=== PATIENT | male | born 1975 | race Caucasian/White ===

== ENCOUNTER 2016-10-27 19:03 | Emergency (ER) | payer MEDICAID ==
[2016-10-27] MEDS ORDERED: Sulfamethoxazole/Trimethoprim 800-160 MG Tab ONE (19:30)
[2016-10-27 19:55] VITALS: BP 105/88
--- NOTE | 2016-10-27 20:08 | EDM.PDOC ---
ED HPI GENERAL MEDICAL PROBLEM - General Chief Complaint: General Stated Complaint: SOB Time Seen by Provider: 10/27/16 19:30 Source of Information: Reports: Patient History Limitations: Reports: No Limitations - History of Present Illness INITIAL COMMENTS - FREE TEXT/NARRATIVE: According to patient he has asthma for a long time and is on symbicort and Proventil inhalers. 3 days ago he developed some fever which he claims was 102F and has been having coughing episodes, with no sputum. Cough is intermittent and dry. Since then his wheezing has got worse. He has been using proventil inhaler more frequently and now has run out of his meds. No chest tightness. he c/o pain in his right lower chest from coughing. No nausea or vomiting. No SOB. No other complaints. Duration: Day(s): (4) Treatments GAS MANAGER: Reports: Acetaminophen, Other (see below) Other Treatments GAS MANAGER: rescue inhaler - Related Data Allergies Allergy/AdvReac Type Severity Reaction Status Date / Time No Known Allergies Allergy Verified 07/04/13 13:52 Home Meds: Home Meds Citalopram [Citalopram HBr] 07/04/13 [History] Ipratropium/Albuterol Sulfate [Duoneb 0.5 MG-3 MG/3 ML] 3 ml INH QID PRN [History] Omeprazole [Prilosec] 20 PO BID 07/04/13 [History] Past Medical History Respiratory History: Reports: Asthma Gastrointestinal History: Reports: GERD Psychiatric History: Reports: Anxiety - Past Surgical History HEENT Surgical History: Reports: Adenoidectomy, Tonsillectomy, Other (See Below) Other HEENT Surgeries/Procedures: 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 Denies: Chills, Fatigue, Night Sweats HEENT: Denies: Rhinitis, Sinus Problem, Throat Pain, Throat Swelling Respiratory: Reports: Wheezing, Cough. Denies: Shortness of Breath, Sputum Cardiovascular: Denies: Chest Pain, Lightheadedness GI/Abdominal: Denies: Abdominal Pain, Nausea, Vomiting : Denies: Dysuria, Flank Pain Musculoskeletal: Denies: Joint Pain, Joint Swelling Skin: Denies: Jaundice, Pruritis, Rash ED EXAM, GENERAL - Physical Exam Exam: See Below Exam Limited By: No Limitations General Appearance: Alert, WD/WN, No Apparent Distress Eye Exam: Bilateral Eye: EOMI, PERRL Ears: Normal External Exam, Normal Canal, Hearing Grossly Normal, Normal TMs Ear Exam: Bilateral Ear: Auricle Normal, Canal Normal, TM normal Nose: Normal Inspection, Normal Mucosa, No Blood Throat/Mouth: Normal Inspection, Normal Lips, Normal Teeth, Normal Gums, Normal Oropharynx, Normal Voice, No Airway Compromise Head: Atraumatic, Normocephalic Neck: Normal Inspection, Supple, Non-Tender, Full Range of Motion Respiratory/Chest: No Respiratory Distress, Lungs Clear, Normal Breath Sounds, No Accessory Muscle Use, Chest Non-Tender Cardiovascular: Normal Peripheral Pulses, Regular Rate, Rhythm, No Edema, No Gallop, No JVD, No Murmur, No Rub Back Exam: Normal Inspection, Full Range of Motion, NT Extremities: Normal Inspection, Normal Range of Motion, Non-Tender, Normal Capillary Refill, No Pedal Edema Course - Vital Signs Text/Narrative:: Pt is afebrile. Vitals stable. Clinical exam is normal. His Chest xray appears normal. His CBC show mild elevation of white count at 12.6K. Pt reassured that he has early bronchitis. As his white count is elevated I have empirically covered him with Bactrim DS twice daily for 1 wk. Advised steam inhalations 2-3 times daily. rest and hydration. Continue symbicort. Also have given vial of albuterol for nebulisation every 6 hrs. followup in the clinic next wk for recheck. Last Recorded V/S: Last Vital Signs Temp 98.4 F 10/27/16 19:30 Pulse 74 10/27/16 19:30 Resp 20 10/27/16 19:30 BP 105/88 10/27/16 19:30 Pulse Ox 98 10/27/16 19:30 - Orders/Labs/Meds Orders: Active Orders 24 hr Category Date Time Status Chest 2V [CR] Stat Exams 10/27/16 20:02 Taken Labs: Laboratory Tests 10/27/16 Range/Units 20:10 WBC 12.4 H D (4.0-11.0) K/uL RBC 5.63 (4.50-6.50) M/uL Hgb 17.1 (13.0-18.0) g/dL Hct 49.7 (40.0-54.0) % MCV 88 (76-96) fL MCH 30.4 (27.0-32.0) pg MCHC 34.4 (31.0-35.0) g/dL RDW 13.7 (11.0-16.0) % Plt Count 245 (150-400) K/uL MPV 10.7 H (6.0-10.0) fL Neut % (Auto) 66.8 (45.0-70.0) % Lymph % (Auto) 20.3 (20.0-40.0) % [place] % (Auto) 10.3 H (3.0-10.0) % Eos % (Auto) 2.4 (1.0-5.0) % Baso % (Auto) 0.2 (0.0-0.5) % Neut # (Auto) 8.26 H (2.00-7.50) K/uL Lymph # (Auto) 2.51 (1.50-4.00) K/uL [place] # (Auto) 1.28 H (0.20-0.80) K/uL Eos # (Auto) 0.30 (0.04-0.40) K/uL Baso # (Auto) 0.03 (0.02-0.10) K/uL Departure - Departure Time of Disposition: 20:55 Disposition: Home, Self-Care 01 Condition: Good Clinical Impression: Bronchitis - Discharge Information Forms: ED Department Discharge Additional Instructions: Pt reassured that he has early bronchitis. As his white count is elevated I have empirically covered him with Bactrim DS twice daily for 1 wk. Advised steam inhalations 2-3 times daily. rest and hydration. Continue symbicort. Also have given vial of albuterol for nebulisation every 6 hrs. followup in the clinic next wk for recheck. - Problem List & Annotations (1) Bronchitis SNOMED Code(s): 14096059 Code(s): J40 - BRONCHITIS, NOT SPECIFIED ACUTE OR CHRONIC Status: Acute - Problem List Review Problem List Initiated/Reviewed/Updated: Yes - My Orders Last 24 Hours: My Active Orders 10/27/16 20:02 Chest 2V [CR] Stat - Assessment/Plan Last 24 Hours: My Active Orders 10/27/16 20:02 Chest 2V [CR] Stat Assessment:: Bronchitis Plan: Pt reassured that he has early bronchitis. As his white count is elevated I have empirically covered him with Bactrim DS twice daily for 1 wk. Advised steam inhalations 2-3 times daily. rest and hydration. Continue symbicort. Also have given vial of albuterol for nebulisation every 6 hrs. followup in the clinic next wk for recheck.
--- NOTE | 2016-10-28 19:12 | CR ---
DATE OF SERVICE: 10/27/2016 CLINICAL DATA: Cough. PA AND LATERAL CHEST Comparison is made to a prior exam dated 07/04/2013. The heart size is normal. The lungs are clear. No pneumothorax. No pleural effusions. No areas of consolidation. The exam is otherwise negative. IMPRESSION: No evidence of acute intrathoracic disease. [id number] MTDD
== END 2016-10-27 20:42 | disposition home or self-care (01) ==
LOC: LB.ED 19:03
DX: J40 Bronchitis, not specified as acute or chronic (principal); Z79.899 Other long term (current) drug therapy; K21.9 Gastro-esophageal reflux disease without esophagitis; F41.9 Anxiety disorder, unspecified; J45.909 Unspecified asthma, uncomplicated; Z98.890 Other specified postprocedural states
CPT/HCPCS: 36415; 71020; 85025; 99285; A9270

== ENCOUNTER 2021-04-22 12:08 | Emergency (ER) | payer MEDICAID ==
--- NOTE | 2021-04-22 12:37 | EDM.PDOC ---
ED HPI GENERAL MEDICAL PROBLEM - General Chief Complaint: Flank Pain Stated Complaint: left side pain Time Seen by Provider: 04/22/21 12:15 Source of Information: Reports: Patient, RN Notes Reviewed History Limitations: Reports: No Limitations - History of Present Illness INITIAL COMMENTS - FREE TEXT/NARRATIVE: This patient presents to the emergency department for evaluation of left flank pain. He states the pain started 2 days ago and he has been in excruciating pain that has been unbearable. He has not taken any medications for this himself states that he was [place] ice [place] during this time. He also states he had a fever of 100.6 today. He denies dysuria. He denies headache, chest pain, shortness of breath, nausea, vomiting, diarrhea. He denies trauma or falls. He denies other concerns or complaints. Left Pain Score (Numeric/FACES): 7 - Related Data Allergies Allergy/AdvReac Type Severity Reaction Status Date / Time No Known Allergies Allergy Verified 04/22/21 12:19 Home Meds: Home Meds Citalopram [Citalopram HBr] 40 mg PO DAILY 07/04/13 [History] Ipratropium/Albuterol Sulfate [Duoneb 0.5 MG-3 MG/3 ML] 3 ml INH QID PRN 07/04/13 [History] Omeprazole [Prilosec] 20 mg PO BID 07/04/13 [History] Past Medical History Respiratory History: Reports: Asthma Gastrointestinal History: Reports: GERD Psychiatric History: Reports: Anxiety - Past Surgical History HEENT Surgical History: Reports: Adenoidectomy, Tonsillectomy, Other (See Below) Other HEENT Surgeries/Procedures: 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 ED EXAM,LOWER BACK PAIN/INJURY - Physical Exam Exam: See Below Exam Limited By: No Limitations General Appearance: Alert, No Apparent Distress Eye Exam: Bilateral Eye: EOMI, Normal Inspection, PERRL Ears: Normal External Exam Nose: Normal Inspection Head: Atraumatic, Normocephalic Neck: Normal Inspection Respiratory/Chest: No Respiratory Distress, Lungs Clear, Normal Breath Sounds, No Accessory Muscle Use GI/Abdominal: Soft, Non-Tender, No Distention Back Exam: CVA Tenderness (L). No: CVA Tenderness (R) Neurological: Alert, Normal Mood/Affect (It is very) Course - Vital Signs Last Recorded V/S: Last Vital Signs Temp 37.0 C 04/22/21 13:03 Pulse 76 04/22/21 13:34 Resp 18 04/22/21 13:34 BP 119/64 04/22/21 13:34 Pulse Ox 98 04/22/21 13:34 - Orders/Labs/Meds Orders: Active Orders 24 hr Category Date Time Status Abdomen Pelvis wo Cont [CT] Stat Exams 04/22/21 13:18 Taken Labs: Laboratory Tests 04/22/21 Range/Units 12:48 Urine Color Yellow Urine Appearance Clear (CLEAR) Urine pH 6.0 (5.0-8.0) Ur Specific [place] 1.025 (1.003-1.030) Urine Protein Negative (NEGATIVE) mg/dL Urine Glucose (UA) Negative (NEGATIVE) mg/dL Urine Ketones Negative (NEGATIVE) mg/dL Urine Occult Blood Trace-intact H (NEGATIVE) Urine Nitrite Negative (NEGATIVE) Urine Bilirubin Negative (NEGATIVE) Urine Urobilinogen 0.2 (0.2-1.0) E.U./dL Ur Leukocyte Esterase Negative (NEGATIVE) Urine RBC 0-5 H /HPF Urine WBC 0-5 H /HPF Ur Squamous Epith Cells Rare /HPF Meds: Medications Discontinued Medications Generic Name Dose Route Start Last Admin Trade Name K[place] PRN Reason Stop Dose Admin Ibuprofen 800 mg 04/22/21 12:48 04/22/21 12:49 Ibuprofen 800 Mg Tab PO 04/22/21 12:49 800 mg ONETIME ONE Administration Ibuprofen Confirm 04/22/21 12:59 04/22/21 12:56 Ibuprofen 800 Mg Tab Administered 04/22/21 13:00 Not Given Dose 800 mg .ROUTE .STK-MED ONE Morphine Sulfate Confirm 04/22/21 13:28 04/22/21 13:20 Morphine 2 Mg/Ml Syringe Administered 04/22/21 13:29 Not Given Dose 2 mg .ROUTE .STK-MED ONE Morphine Sulfate 2 mg 04/22/21 13:21 04/22/21 13:22 Morphine 2 Mg/Ml Syringe IM 04/22/21 13:22 2 mg ONETIME ONE Administration - Re-Assessments/Exams Free Text/Narrative Re-Assessment/Exam: This patient presents to the emergency department with left CVA tenderness. History and clinical findings identify diverticulitis without abscess or perforation. This appears somewhat consistent with his history although not quite consistent with his physical exam. The patient's pain was controlled by first ibuprofen then morphine while in the emergency room. Appears that this is an uncomplicated diverticulitis at this time. There are no signs of sepsis, shock, or bacteremia. The natural history and etiology of this problem was discussed and I talked with the patient regarding signs and symptoms that should prompt return to the emergency department. This includes worsening chills, fevers, vomiting, or more impending tense pain. He was given a prescription for Augmentin and instructed to use ibuprofen for pain. He should follow-up with his primary care provider in 1 to 2 days as needed. 04/22/21 18:04 Departure - Departure Time of Disposition: 15:00 Disposition: Home, Self-Care 01 Condition: Good Clinical Impression: Diverticulitis - Discharge Information *PRESCRIPTION DRUG MONITORING PROGRAM REVIEWED*: Not Applicable *COPY OF PRESCRIPTION DRUG MONITORING REPORT IN PATIENT KAYLEE: Not Applicable Instructions: Diverticulitis, [id number] Referrals: PCP,None [Primary Care Provider] - Forms: ED Department Discharge Care Plan Goals: Take Augmentin 875mg by mouth twice a day for 10 days. Rest. drink plenty of fluids. Tyl motrin for pain Sepsis Event Note (ED) - Focused Exam Vital Signs: Vital Signs Temp Pulse Resp BP Pulse Ox 04/22/21 13:34 76 18 119/64 98 04/22/21 13:03 37.0 C 04/22/21 12:16 37.3 C 89 16 121/69 97 - My Orders Last 24 Hours: My Active Orders 04/22/21 13:18 Abdomen Pelvis wo Cont [CT] Stat - Assessment/Plan Last 24 Hours: My Active Orders 04/22/21 13:18 Abdomen Pelvis wo Cont [CT] Stat
[2021-04-22] MEDS ORDERED: Ibuprofen 800 MG Tab PO ONE (12:48)
[2021-04-22] MEDS ORDERED: Ibuprofen 800 MG Tab ONE (12:59)
[2021-04-22] MEDS ORDERED: Morphine 2 MG/ML SYRINGE IM ONE (13:21)
[2021-04-22] MEDS ORDERED: Morphine 2 MG/ML SYRINGE ONE (13:28)
[2021-04-22 13:35] VITALS: BP 119/64; PULSE 76
[2021-04-22] MEDS ORDERED: Amoxicillin/Clavulanate K 875-125 MG Tab ONE (14:00)
--- NOTE | 2021-04-24 11:33 | CT ---
DATE OF SERVICE: 04/22/2021 CLINICAL DATA: R/O stones. UNENHANCED ABDOMEN AND PELVIC CT: Multislice axial acquisition without IV or oral contrast was performed. No priors. There is a linear density in the right costophrenic angle consistent with linear atelectasis or fibrosis. The lung bases are otherwise clear. The heart size is normal. There is diffuse fatty infiltration of the liver. No focal hepatic lesions. The gallbladder appears normal. No calcified gallstones. The spleen appears normal. The pancreas appears normal. The right and left adrenals appear normal. There is a 4.2 cm benign appearing cyst in the upper pole of the right kidney. The right and left kidneys otherwise appear normal. No nephrocalcinosis or nephrolithiasis. No hydronephrosis or hydroureter. The bladder is partially fluid filled. It appears normal. The prostate is enlarged. There are multiple calcifications within the prostate consistent with chronic prostatitis. The appendix is not dilated. No evidence of appendicitis. There is diverticulosis of the descending and sigmoid colon. There is pericolonic fat stranding adjacent to the mid descending colon consistent with diverticulitis. No evidence of diverticular abscess. No free air. No free fluid. No dilated loops of bowel. No adenopathy. No aortic aneurysm. There is a small fat containing umbilical hernia. There is degenerative disc disease at multiple levels in the lower thoracic and lumbar spine. IMPRESSION: Diverticulosis. Findings consistent with diverticulitis of mid descending colon. No evidence of diverticular abscess. Other findings as discussed above. [id number] [facility]
== END 2021-04-22 14:32 | disposition home or self-care (01) ==
LOC: LB.ED 12:08
DX: K57.32 Diverticulitis of large intestine without perforation or abscess without bleeding (principal); K21.9 Gastro-esophageal reflux disease without esophagitis; Z79.899 Other long term (current) drug therapy
CPT/HCPCS: 74176; 81001; 96372; 99284; A9270; J2270